=== PATIENT | male | born 2005 | race Caucasian/White ===

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

== ENCOUNTER 2024-09-26 01:00 | Emergency (ER) | payer OTHER, SELFPAY ==
--- NOTE | ~2024-09-26 | CT_ITS ---
EXAMINATION: CTA chest PE protocol DATE: 09/26/2024 05:28 INDICATION: Left rib pain, tachycardia and syncope TECHNIQUE: Computed tomography (CT) pulmonary angiogram of the chest was performed with 200 mL Omnipa que-350 intravenous contrast. Additional 3D reconstructions utilizing coronal maximum intensity proje ction (MIP) were performed. Automated exposure control and iterative reconstruction technique were em ployed. The dose-length product was 1475.14 mGy-cm. COMPARISON: None FINDINGS: There is poor contrast opacification of the pulmonary arteries of both initial and repeat images. The re is no pulmonary embolism in the main, left or right pulmonary arteries. No more peripheral pulmona ry embolism identified although sensitivity is progressively decreased in the lobar and segmental pul monary, essentially nondiagnostic beyond the segmental pulmonary arteries. No pneumonia, pulmonary ed vianey, pleural effusion or pneumothorax. Heart size is normal. No pericardial effusion. Thoracic aorta is normal in caliber with no dissection. Moderate bilateral gynecomastia. No pathologically enlarged thoracic lymphadenopathy. Visualized upper abdomen and bones are unremarkable. IMPRESSION: 1. Poor contrast opacification of the pulmonary arteries yielding a limited study. No central pulmona ry embolism. Sensitivity progressively decreases in the lobar and segmental pulmonary arteries, nondi agnostic in the more peripheral pulmonary arteries. Reviewed, dictated and finalized at location A. IMPRESSION: 1. Poor contrast opacification of the pulmonary arteries yielding a limited bruna dy. No central pulmonary embolism. Sensitivity progressively decreases in the l obar and segmental pulmonary arteries, nondiagnostic in the more peripheral pul monary arteries.
--- NOTE | ~2024-09-26 | XR_ITS ---
EXAMINATION: XR chest 1V DATE: 09/26/2024 02:11 INDICATION: Left rib pain TECHNIQUE: frontal view of the chest was obtained. COMPARISON: Chest radiograph dated 09/03/2019 FINDINGS: The lungs are clear with no focal airspace opacities, pulmonary edema, pleural effusion or pneumothor ax. The cardiomediastinal silhouette is normal. Visualized bones and soft tissues are unremarkable. IMPRESSION: 1. No acute cardiopulmonary disease. Reviewed, dictated and finalized at location A.
[2024-09-26 01:01] VITALS: BP 155/81; PULSE 118; RESP 18; TEMP 36.6; O2SAT 100
--- OUTSIDE RECORDS SUMMARY | 2024-09-26 01:02 | XMS_ITS | Clinical Summary ---
Author Organization [facility] Address [address] [place] [address] Care Team Providers Care Office Equipment Technician Name Role Phone Unavailable Primary Care Provider Unavailabl e Source Comments [facility],non-owned Affiliates and Associated Physician Practices is amultiple site organization consisting of ambulatory clinics and hospital sitesin [place], [place], [place] and [place]. This disclosure is being madepursuant to the Care Everywhere program and may not contain all information available regarding this patient. Last updated 17.[facility] Allergies No known active allergies Medications * Be aware that medications may not be up to date on this document. Alwaysverify current medications with the patient. azithromycin (ZITHROMAX) 250 MG tablet Take 250 mg by mouth once daily Active Active Problems Problem Noted Date Diagnosed Date COVID-19 09/03/2019 Assessment & Plan (09/03/2019 5:53 PM CDT): Assessment: 14 y/o male with productive cough x 1 week. Started on zpack on 08/30 by PCP and COVID (+) yesterday on outpatient labs. No known exposure. Outpatient CXR consistent with viral pneumonia. Patient hemodynamically stable and reports symptoms improving compared to yesterday. Plan: - Continue azithromycin for antiinflammatory effects - Airborne, Droplet and contact precautions - cardiorespiratory monitoring - Recommend 14 day self-quarantine of family or other contacts exposed to Vasquez as recommended by CDC guidelines Pleuritic chest pain 09/03/2019 Assessment & Plan (09/03/2019 6:19 PM CDT): Assessment: 14 y/o male with pmhx of global developmental delay and pectus excavatum, seen by PCP on 08/30 for productive cough x 1 week. Covid swab obtained and started on zpak. COVID (+) yesterday and outpatient CXR suggestive of viral pneumonia per PCP. Associate symptoms include pleuritic chest pain x 2 days, nasal congestion and fatigue. Patient in no distress and hemodynamically stable with adequate oxygenation on RA. Chest pain likely MSK as pain is reproducible with palpation to anterior chest wall, however, COVID systemic inflammatory response has been associated with damage to cardiac myocytes and will work up further with EKG and troponin. Given patient's + family hx of clotting disorder and increased risk of thrombosis associated with COVID, will order ddimer and consider CTA if elevated, to rule out PE. Patient requires admission for chest pain workup. Anticipate DC tomorrow if work-up unremarkable. Plan: - Direct admission to orange team, Dr. Peterson - EKG - serial troponins - ddimer - if ddimer elevated, consider CTA - BMP - complete Zpak course prescribed by PCP on 08/30 - continuous cardiorespiratory monitoring - Vitals q4h Assessment & Plan (09/03/2019 6:07 PM CDT): Assessment: 14 y/o male with pmhx of global developmental delay and pectus excavatum, seen by PCP on 08/30 for productive cough x 1 week. Covid swab obtained and started on zpak. COVID (+) yesterday and outpatient CXR suggestive of viral pneumonia per PCP. Associate symptoms include pleuritic chest pain x 2 days, nasal congestion and fatigue. Patient in no distress and hemodynamically stable with adequate oxygenation on RA. Chest pain likely MSK as pain is reproducible with palpation to anterior chest wall, however, COVID systemic inflammatory response has been associated with damage to cardiac myocytes and will work up further with EKG and troponin. Given patient's + family hx of clotting disorder and increased risk of thrombosis associated with COVID, will order ddimer and consider CTA if elevated, to rule out PE. Patient requires admission for chest pain workup. Anticipate DC tomorrow if work-up unremarkable. Plan: - Direct admission to orange team, Dr. Peterson - EKG - serial troponins - ddimer - if ddimer elevated, consider CTA - BMP - complete Zpak course prescribed by PCP on 08/30 - continuous cardiorespiratory monitoring - Vitals q4h Pneumonia due to COVID-19 virus 09/03/2019 Assessment & Plan (09/03/2019 5:58 PM CDT): Assessment: 14 y/o male with outpatient labs COVID positive and CXR concerning for viral pneumonia. Azythromycin started on 08/30 by PCP. No wheezes, crackles, or rales on exam and adequate oxygenation on room air. Hemodynamically stable. Will continue zpak to complete course for antiinflammatory effects. Plan: - complete Zpak course prescribed by PCP on 08/30 - continuous cardiorespiratory monitoring - Vitals q4h Resolved Problems Problem Noted Date Diagnosed Date Resolved Date Viral pneumonia 09/03/2019 09/03/2019 Social History Tobacco Use Types Packs/Day Years Used Date Smoking Tobacco: Never Smokeless Tobacco: Never Alcohol Use Standard Drinks/Week Comments Never 0 (1 standard drink = 0.6 oz pur e alcohol) AUDIT-C Answer Date Recorded Q1: How often do you have a drink containing alc ohol? Never 09/03/2019 Average Number of Drinks Not on file 020 Frequency of Binge Drinking Not on file 08/24 Sex and Gender Information Value Date Recorded Sex Assigned at Not on file Legal Sex Male 11:46 AM CDT Gender Identity Not on file Sexual Orientation Not on file Last Filed Vital Signs Vital Sign Reading Time Taken Comments Blood Pressure 132/88 09/04/2019 7:45 AM CDT Pulse 68 09/04/2019 7:40 AM CDT Temperature 36.3 C (97.4 F) 09/04/2019 7:40 AM CDT Respiratory Rate 18 09/04/2019 7:40 AM CDT Oxygen Saturation 98% 09/04/2019 7:40 AM CDT Inhaled Oxygen Concentration - - Weight 81.1 kg (178 lb 12.7 oz) 09/03/2019 2:52 PM CDT Height 188 cm (6' 2) 09/03/2019 2:52 PM CDT Body Mass Index 22.96 09/03/2019 2:52 PM CDT Plan of Treatment Health Maintenance Due Date Last Done Comments HIV SCREENING 2018 HPV VACCINE (1 - Male 3-dose series) 2018 MENINGOCOCCAL (Group B) VACC INE SHARED DECISION-MAKING (1 of 2 - Standard) 2019 HEPATITIS C SCREENING 04/07/2021 DTAP/TDAP/TD VACCINES (1 - Tdap) 2022 HEPATITIS B VACCINE (1 of 3 - 19+ 3-dose series) 2022 COVID-19 VACCINE (1 - 2023-2 5 season) 2023 DEPRESSION SCREENING 02/25/2024 INFLUENZA VACCINE (#1) 2024 ZOSTER VACCINE (1 of 2) 2053 HIB VACCINE Aged Out No longer eligi ble based on patient's age to complete this topic MENINGOCOCCAL GROUPS A/C/Y/W VACCINE Aged Out No longer eligible b ased on patient's age to complete this topic PNEUMOCOCCAL VACCINE Aged Out No long er eligible based on patient's age to complete this topic Insurance MEDICAID [employer] [facility] [employer] Advance Directives * Full Code (Latest Code Status on File) Date Activated Date Inactivated Comments 09/03/2019 2:35 PM 09/04/2019 12:58 PM
--- NOTE | 2024-09-26 02:02 | ECG_ITS ---
Test Date: 2024-09-26 03:02:28 Measurements Intervals [place] Rate: 95 P: 45 WI: 164 QRS: 23 QRSD: 107 T: -14 QT: 348 QTc: 439 Interpretive Statements SINUS RHYTHM POSSIBLE LEFT ATRIAL ENLARGEMENT BORDERLINE R WAVE PROGRESSION, ANTERIOR LEADS CONSIDER INFERIOR INFARCT, AGE INDETERMINATE BASELINE ARTIFACT- I, II, AVR, AVL, AVF ABNORMAL ECG No previous ECG available for comparison Electronically Signed On 09-26-2024 08:20:11 CDT by Maxim Bean D.O.
--- OUTSIDE RECORDS SUMMARY | 2024-09-26 03:00 | XMS_ITS | Clinical Summary ---
Author Organization [facility] Address [address] [place] [address] Care Team Providers Care Rod Welder Name Role Phone Unavailable Primary Care Provider Unavailabl e Source Comments [facility],non-owned Affiliates and Associated Physician Practices is amultiple site organization consisting of ambulatory clinics and hospital sitesin [place], [place], [place] and [place]. This disclosure is being madepursuant to the Care Everywhere program and may not contain all information available regarding this patient. Last updated 17.[facility] Allergies No known active allergies Medications * [...] topic Insurance MEDICAID [employer] [facility] [facility] Advance Directives * Full Code (Latest Code Status on File) Date Activated Date Inactivated Comments 09/03/2019 2:35 PM 09/04/2019 12:58 PM
[2024-09-26 03:16] VITALS: BP 167/87; PULSE 98; RESP 15; O2SAT 100
[2024-09-26 04:02] LABS: Influenza A QL RT-PCR Negative (Negative); Influenza B QL RT-PCR Negative (Negative); RSV RNA, RT-PCR Negative (Negative); SARS-CoV-2 RNA PCR Negative (Negative)
[2024-09-26] MEDS: LACTATED RINGERS 1,000 ML 999 ML IV CONT (04:17)
[2024-09-26] MEDS: ONDANSETRON INJ 4 MG/2 ML VIAL IV PUSH (04:18)
[2024-09-26] MEDS: FAMOTIDINE 20 MG/2 ML VIAL IV PUSH (04:18)
[2024-09-26 04:20] LABS: Hematocrit 44.7 % (42.0-52.0); Hemoglobin 15.3 g/dL (14.0-18.0); Immature Granulocyte Percent A 0.8 % (0-0.5); Lymphocytes Absolute Auto 1.32 K/mm3 (0.9-3.2); Mean Corpuscular HGB Conc 34.2 g/dl (32-36); Mean Corpuscular Hemoglobin 29.3 pg (26-34); Mean Corpuscular Volume 85.5 fl (80-100); Nucleated Red Blood Cells Absolute Auto 0.000 K/mm3 (0.0-0.012); Nucleated Red Blood Cells Perc 0.0 % (0.0-0.2); Platelet Count Result 333 k/mm3 (150-375); Red Blood Count 5.23 M/mm3 (4.6-6.20); White Blood Count 11.8 K/mm3 (4.5-10.0)
[2024-09-26 04:37] VITALS: BP 164/89; PULSE 91; RESP 20; O2SAT 100
[2024-09-26 04:52] LABS: Alanine Aminotransferase 95 U/L (6-50); Albumin Level 4.0 g/dL (3.5-5.1); Alkaline Phosphatase 161 U/L (38-126); Anion Gap 12 mmol/L (4-12); Aspartate Amino Transferase 44 U/L (17-59); Bilirubin,Total 0.8 mg/dL (0.2-1.3); Blood Urea Nitrogen 16 mg/dL (9-20); Calcium 8.8 mg/dL (8.4-10.2); Carbon Dioxide 26 mmol/L (22-30); Chloride 91 mmol/L (98-107); Estimated CRCL calculation 169 ml/min; Estimated Glomerular Filt Rate > 60; Glucose 110 mg/dL (65-110); Potassium 3.2 mmol/L (3.4-5.0); Sodium 129 mmol/L (137-145); Total Protein 7.8 g/dL (6.3-8.2)
[2024-09-26 05:02] LABS: Troponin I < 0.012 ng/mL (0.000-0.034)
--- NOTE | 2024-09-26 05:44 | ED.NAVMDI ---
HPI - Nausea/Vomiting/Diarrhea General Chief complaint: Nausea/Vomiting/Diarrhea <Lazara Herman MD - Last Filed: 10/12/24 10:37> Stated complaint: n/v/d pain in weird spots syncope episodes <Lazara Herman MD - Last Filed: 10/12/24 10:37> Time Seen by Provider: 09/26/24 02:47 <Lazara Herman MD - Last Filed: 10/12/24 10:37> History of Present Illness HPI Narrative: Patient reports that he has been having nausea vomiting, he also reports some left-sided chest pain and some difficulty breathing, he thinks that he has been passing out. Has never had symptoms like this before <Lazara Herman MD - Last Filed: 10/12/24 10:37> Related Data Allergies/Adverse reactions: Allergies Allergy/AdvReac Type Severity Reaction Status Date / Time No Known Allergies Allergy Unverified 04/05/15 12:40 <Lazara Herman MD - Last Filed: 10/12/24 10:37> Review of Systems Review of Systems: All systems reviewed & are unremarkable except as noted in HPI and below <Lazara Herman MD - Last Filed: 10/12/24 10:37> Exam Narrative: EXAMINATION OF ORGAN SYSTEMS/BODY AREAS: Constitutional: Vital signs per nursing GENERAL: Appears slightly uncomfortable HEAD: Normal with no signs of head trauma. EYES: EOMI, conjunctiva normal ENT: Hearing grossly intact LUNGS: Nonlabored breathing. Clear to auscultation bilaterally HEART: Tachycardic ABD: [Soft], [nontender to palpation] EXT: Normal range of motion SKIN: [No rashes or lesions.] NEURO: [Alert and oriented x 3. No gross focal sensory or strength deficits.] PSYCH: Normal affect <Lazara Herman MD - Last Filed: 10/12/24 10:37> Course Course Emergency Course: Patient care signed out to me by the overnight physician with a CTA pending with dissipated disposition being discharged home. Patient is currently afebrile but does have a leukocytosis of 11.8 hemoglobin of 15.3. Patient's D-dimer is elevated at 3.8. Patient has had was 129, potassium 3.2 patient's influenza RSV and COVID were negative. CTA was per contrast but was negative for the visualized arteries nondiagnostic for peripheral arteries. Patient is not tachycardic and not hypoxic and has a pressure 150/88. Patient does describe having a our illness. Patient family updated the results of the workup and patient will have close follow-up with his primary care physician. <Armand Shane MD - Last Filed: 09/26/24 17:14> Vital Signs Vital signs: Vital Signs Temperature 97.9 F 09/26/24 01:01 Pulse Rate 118 H 09/26/24 01:01 Respiratory Rate 18 09/26/24 01:01 Blood Pressure 155/81 H 09/26/24 01:01 Pulse Oximetry 100 09/26/24 01:01 Oxygen Delivery Room Air 09/26/24 01:01 Temperature 97.9 F 09/26/24 01:01 Pulse Rate 103 H 09/26/24 06:20 Respiratory Rate 22 H 09/26/24 06:20 Blood Pressure 121/80 09/26/24 06:20 Pulse Oximetry 99 09/26/24 06:20 Oxygen Delivery Room Air 09/26/24 01:01 <Lazara Herman MD - Last Filed: 10/12/24 10:37> Vital Signs Temperature 97.9 F 09/26/24 01:01 Pulse Rate 118 H 09/26/24 01:01 Respiratory Rate 18 09/26/24 01:01 Blood Pressure 155/81 H 09/26/24 01:01 Pulse Oximetry 100 09/26/24 01:01 Oxygen Delivery Room Air 09/26/24 01:01 Temperature 97.9 F 09/26/24 01:01 Pulse Rate 103 H 09/26/24 06:20 Respiratory Rate 22 H 09/26/24 06:20 Blood Pressure 121/80 09/26/24 06:20 Pulse Oximetry 99 09/26/24 06:20 Oxygen Delivery Room Air 09/26/24 01:01 <Armand Shane MD - Last Filed: 09/26/24 17:14> MDM - Nausea/Vomiting/Diarrhea MDM Narrative Medical decision making narrative: 19-year-old male presenting with vague symptoms including nausea, vomiting, possible syncope, left-sided chest pain and shortness of breath. Given the list of symptoms I have wide differential, but will rule out PE, viral syndrome, pneumonia D-dimer is elevated so CT PE obtained. Potassium 3.2 which is repleted. Troponin is negative. Swabs are negative CT PE still pending at this time signed out to oncoming ER physician <Lazara Herman MD - Last Filed: 10/12/24 10:37> Differential Diagnosis Differential diagnosis: Likely other (Pneumonia, pneumothorax, pulmonary embolism) <Armand Shane MD - Last Filed: 09/26/24 17:14> Lab Data Attestation: I reviewed the patient's lab results. <Armand Shane MD - Last Filed: 09/26/24 17:14> Result diagrams: 09/26/24 04:14 09/26/24 04:14 <Lazara Herman MD - Last Filed: 10/12/24 10:37> Labs: Lab Results 09/26/24 09/26/24 09/26/24 Range/Units 03:10 04:14 04:14 WBC 11.8 H (4.5-10.0) K/mm3 RBC 5.23 (4.6-6.20) M/mm3 Hgb 15.3 (14.0-18.0) g/dL Hct 44.7 (42.0-52.0) % MCV 85.5 (80-100) fl MCH 29.3 (26-34) pg MCHC 34.2 (32-36) g/dl RDW 12.0 (11.5-14.5) % Plt Count 333 (150-375) k/mm3 MPV 10.9 H (7.4-10.4) fl Immature Gran % (Auto) 0.8 H (0-0.5) % Neut % (Auto) 77.5 H (45.5-73.1) % Lymph % (Auto) 11.1 L (18.3-44.2) % Carroll % (Auto) 10.1 H (2.6-8.5) % Eos % (Auto) 0.4 (0-4.4) % Baso % (Auto) 0.1 L (0.2-1.2) % Lymph # (Auto) 1.32 (0.9-3.2) K/mm3 Carroll # (Auto) 1.2 H (0.1-0.6) K/mm3 Eos # (Auto) 0.1 (0-0.3) K/mm3 Baso # (Auto) 0.0 (0.0-0.1) K/mm3 Abs Immat Gran (auto) 0.10 H (0.00-0.031) K/mm3 Absolute Neuts (auto) 9.2 H (1.3-6.7) K/mm3 Absolute Nucleated RBC 0.000 (0.0-0.012) K/mm3 Nucleated RBC % 0.0 (0.0-0.2) % D-Dimer 3.80 H (<0.48) ug/mL Sodium Cancelled 129 L Potassium Cancelled Chloride Carbon Dioxide Anion Gap BUN Creatinine Estim Creat Clear Calc Estimated GFR Glucose Calcium Total Bilirubin AST ALT Alkaline Phosphatase Troponin I (0.000-0.034) ng/mL Total Protein Albumin Influenza A (RT-PCR) Negative (Negative) Influenza B (RT-PCR) Negative (Negative) RSV (RT-PCR) Negative (Negative) SARS-CoV-2 RNA (RT-PCR) Negative (Negative) 09/26/24 09/26/24 09/26/24 Range/Units 04:14 04:14 04:14 WBC (4.5-10.0) K/mm3 RBC (4.6-6.20) M/mm3 Hgb (14.0-18.0) g/dL Hct (42.0-52.0) % MCV (80-100) fl MCH (26-34) pg MCHC (32-36) g/dl RDW (11.5-14.5) % Plt Count (150-375) k/mm3 MPV (7.4-10.4) fl Immature Gran % (Auto) (0-0.5) % Neut % (Auto) (45.5-73.1) % Lymph % (Auto) (18.3-44.2) % Carroll % (Auto) (2.6-8.5) % Eos % (Auto) (0-4.4) % Baso % (Auto) (0.2-1.2) % Lymph # (Auto) (0.9-3.2) K/mm3 [place] # (Auto) (0.1-0.6) K/mm3 Eos # (Auto) (0-0.3) K/mm3 Baso # (Auto) (0.0-0.1) K/mm3 Abs Immat Gran (auto) (0.00-0.031) K/mm3 Absolute Neuts (auto) (1.3-6.7) K/mm3 Absolute Nucleated RBC (0.0-0.012) K/mm3 Nucleated RBC % (0.0-0.2) % D-Dimer (<0.48) ug/mL Sodium Potassium 3.2 L Chloride Cancelled 91 L Carbon Dioxide Cancelled 26 Anion Gap Cancelled BUN Creatinine Estim Creat Clear Calc Estimated GFR Glucose Calcium Total Bilirubin AST ALT Alkaline Phosphatase Troponin I (0.000-0.034) ng/mL Total Protein Albumin Influenza A (RT-PCR) (Negative) Influenza B (RT-PCR) (Negative) RSV (RT-PCR) (Negative) SARS-CoV-2 RNA (RT-PCR) (Negative) 09/26/24 09/26/24 09/26/24 Range/Units 04:14 04:14 04:14 WBC (4.5-10.0) K/mm3 RBC (4.6-6.20) M/mm3 Hgb (14.0-18.0) g/dL Hct (42.0-52.0) % MCV (80-100) fl MCH (26-34) pg MCHC (32-36) g/dl RDW (11.5-14.5) % Plt Count (150-375) k/mm3 MPV (7.4-10.4) fl Immature Gran % (Auto) (0-0.5) % Neut % (Auto) (45.5-73.1) % Lymph % (Auto) (18.3-44.2) % Carroll % (Auto) (2.6-8.5) % Eos % (Auto) (0-4.4) % Baso % (Auto) (0.2-1.2) % Lymph # (Auto) (0.9-3.2) K/mm3 Carroll # (Auto) (0.1-0.6) K/mm3 Eos # (Auto) (0-0.3) K/mm3 Baso # (Auto) (0.0-0.1) K/mm3 Abs Immat Gran (auto) (0.00-0.031) K/mm3 Absolute Neuts (auto) (1.3-6.7) K/mm3 Absolute Nucleated RBC (0.0-0.012) K/mm3 Nucleated RBC % (0.0-0.2) % D-Dimer (<0.48) ug/mL Sodium Potassium Chloride Carbon Dioxide Anion Gap 12 BUN Cancelled 16 Creatinine Cancelled 0.88 Estim Creat Clear Calc Cancelled Estimated GFR Glucose Calcium Total Bilirubin AST ALT Alkaline Phosphatase Troponin I (0.000-0.034) ng/mL Total Protein Albumin Influenza A (RT-PCR) (Negative) Influenza B (RT-PCR) (Negative) RSV (RT-PCR) (Negative) SARS-CoV-2 RNA (RT-PCR) (Negative) 09/26/24 09/26/24 09/26/24 Range/Units 04:14 04:14 04:14 WBC (4.5-10.0) K/mm3 RBC (4.6-6.20) M/mm3 Hgb (14.0-18.0) g/dL Hct (42.0-52.0) % MCV (80-100) fl MCH (26-34) pg MCHC (32-36) g/dl RDW (11.5-14.5) % Plt Count (150-375) k/mm3 MPV (7.4-10.4) fl Immature Gran % (Auto) (0-0.5) % Neut % (Auto) (45.5-73.1) % Lymph % (Auto) (18.3-44.2) % Carroll % (Auto) (2.6-8.5) % Eos % (Auto) (0-4.4) % Baso % (Auto) (0.2-1.2) % Lymph # (Auto) (0.9-3.2) K/mm3 Carroll # (Auto) (0.1-0.6) K/mm3 Eos # (Auto) (0-0.3) K/mm3 Baso # (Auto) (0.0-0.1) K/mm3 Abs Immat Gran (auto) (0.00-0.031) K/mm3 Absolute Neuts (auto) (1.3-6.7) K/mm3 Absolute Nucleated RBC (0.0-0.012) K/mm3 Nucleated RBC % (0.0-0.2) % D-Dimer (<0.48) ug/mL Sodium Potassium Chloride Carbon Dioxide Anion Gap BUN Creatinine Estim Creat Clear Calc 169 Estimated GFR Cancelled > 60 Glucose Cancelled 110 Calcium Cancelled Total Bilirubin AST ALT Alkaline Phosphatase Troponin I (0.000-0.034) ng/mL Total Protein Albumin Influenza A (RT-PCR) (Negative) Influenza B (RT-PCR) (Negative) RSV (RT-PCR) (Negative) SARS-CoV-2 RNA (RT-PCR) (Negative) 09/26/24 09/26/24 09/26/24 Range/Units 04:14 04:14 04:14 WBC (4.5-10.0) K/mm3 RBC (4.6-6.20) M/mm3 Hgb (14.0-18.0) g/dL Hct (42.0-52.0) % MCV (80-100) fl MCH (26-34) pg MCHC (32-36) g/dl RDW (11.5-14.5) % Plt Count (150-375) k/mm3 MPV (7.4-10.4) fl Immature Gran % (Auto) (0-0.5) % Neut % (Auto) (45.5-73.1) % Lymph % (Auto) (18.3-44.2) % Carroll % (Auto) (2.6-8.5) % Eos % (Auto) (0-4.4) % Baso % (Auto) (0.2-1.2) % Lymph # (Auto) (0.9-3.2) K/mm3 [place] # (Auto) (0.1-0.6) K/mm3 Eos # (Auto) (0-0.3) K/mm3 Baso # (Auto) (0.0-0.1) K/mm3 Abs Immat Gran (auto) (0.00-0.031) K/mm3 Absolute Neuts (auto) (1.3-6.7) K/mm3 Absolute Nucleated RBC (0.0-0.012) K/mm3 Nucleated RBC % (0.0-0.2) % D-Dimer (<0.48) ug/mL Sodium Potassium Chloride Carbon Dioxide Anion Gap BUN Creatinine Estim Creat Clear Calc Estimated GFR Glucose Calcium 8.8 Total Bilirubin Cancelled 0.8 AST Cancelled 44 ALT Cancelled Alkaline Phosphatase Troponin I (0.000-0.034) ng/mL Total Protein Albumin Influenza A (RT-PCR) (Negative) Influenza B (RT-PCR) (Negative) RSV (RT-PCR) (Negative) SARS-CoV-2 RNA (RT-PCR) (Negative) 09/26/24 09/26/24 09/26/24 Range/Units 04:14 04:14 04:14 WBC (4.5-10.0) K/mm3 RBC (4.6-6.20) M/mm3 Hgb (14.0-18.0) g/dL Hct (42.0-52.0) % MCV (80-100) fl MCH (26-34) pg MCHC (32-36) g/dl RDW (11.5-14.5) % Plt Count (150-375) k/mm3 MPV (7.4-10.4) fl Immature Gran % (Auto) (0-0.5) % Neut % (Auto) (45.5-73.1) % Lymph % (Auto) (18.3-44.2) % Carroll % (Auto) (2.6-8.5) % Eos % (Auto) (0-4.4) % Baso % (Auto) (0.2-1.2) % Lymph # (Auto) (0.9-3.2) K/mm3 [place] # (Auto) (0.1-0.6) K/mm3 Eos # (Auto) (0-0.3) K/mm3 Baso # (Auto) (0.0-0.1) K/mm3 Abs Immat Gran (auto) (0.00-0.031) K/mm3 Absolute Neuts (auto) (1.3-6.7) K/mm3 Absolute Nucleated RBC (0.0-0.012) K/mm3 Nucleated RBC % (0.0-0.2) % D-Dimer (<0.48) ug/mL Sodium Potassium Chloride Carbon Dioxide Anion Gap BUN Creatinine Estim Creat Clear Calc Estimated GFR Glucose Calcium Total Bilirubin AST ALT 95 H Alkaline Phosphatase Cancelled 161 H Troponin I < 0.012 (0.000-0.034) ng/mL Total Protein Cancelled 7.8 Albumin Cancelled Influenza A (RT-PCR) (Negative) Influenza B (RT-PCR) (Negative) RSV (RT-PCR) (Negative) SARS-CoV-2 RNA (RT-PCR) (Negative) 09/26/24 Range/Units 04:14 WBC (4.5-10.0) K/mm3 RBC (4.6-6.20) M/mm3 Hgb (14.0-18.0) g/dL Hct (42.0-52.0) % MCV (80-100) fl MCH (26-34) pg MCHC (32-36) g/dl RDW (11.5-14.5) % Plt Count (150-375) k/mm3 MPV (7.4-10.4) fl Immature Gran % (Auto) (0-0.5) % Neut % (Auto) (45.5-73.1) % Lymph % (Auto) (18.3-44.2) % Carroll % (Auto) (2.6-8.5) % Eos % (Auto) (0-4.4) % Baso % (Auto) (0.2-1.2) % Lymph # (Auto) (0.9-3.2) K/mm3 [place] # (Auto) (0.1-0.6) K/mm3 Eos # (Auto) (0-0.3) K/mm3 Baso # (Auto) (0.0-0.1) K/mm3 Abs Immat Gran (auto) (0.00-0.031) K/mm3 Absolute Neuts (auto) (1.3-6.7) K/mm3 Absolute Nucleated RBC (0.0-0.012) K/mm3 Nucleated RBC % (0.0-0.2) % D-Dimer (<0.48) ug/mL Sodium Potassium Chloride Carbon Dioxide Anion Gap BUN Creatinine Estim Creat Clear Calc Estimated GFR Glucose Calcium Total Bilirubin AST ALT Alkaline Phosphatase Troponin I (0.000-0.034) ng/mL Total Protein Albumin 4.0 Influenza A (RT-PCR) (Negative) Influenza B (RT-PCR) (Negative) RSV (RT-PCR) (Negative) SARS-CoV-2 RNA (RT-PCR) (Negative) <Lazara Herman MD - Last Filed: 10/12/24 10:37> Lab Results 09/26/24 09/26/24 09/26/24 Range/Units 03:10 04:14 04:14 WBC 11.8 H (4.5-10.0) K/mm3 RBC 5.23 (4.6-6.20) M/mm3 Hgb 15.3 (14.0-18.0) g/dL Hct 44.7 (42.0-52.0) % MCV 85.5 (80-100) fl MCH 29.3 (26-34) pg MCHC 34.2 (32-36) g/dl RDW 12.0 (11.5-14.5) % Plt Count 333 (150-375) k/mm3 MPV 10.9 H (7.4-10.4) fl Immature Gran % (Auto) 0.8 H (0-0.5) % Neut % (Auto) 77.5 H (45.5-73.1) % Lymph % (Auto) 11.1 L (18.3-44.2) % Carroll % (Auto) 10.1 H (2.6-8.5) % Eos % (Auto) 0.4 (0-4.4) % Baso % (Auto) 0.1 L (0.2-1.2) % Lymph # (Auto) 1.32 (0.9-3.2) K/mm3 [place] # (Auto) 1.2 H (0.1-0.6) K/mm3 Eos # (Auto) 0.1 (0-0.3) K/mm3 Baso # (Auto) 0.0 (0.0-0.1) K/mm3 Abs Immat Gran (auto) 0.10 H (0.00-0.031) K/mm3 Absolute Neuts (auto) 9.2 H (1.3-6.7) K/mm3 Absolute Nucleated RBC 0.000 (0.0-0.012) K/mm3 Nucleated RBC % 0.0 (0.0-0.2) % D-Dimer 3.80 H (<0.48) ug/mL Sodium Cancelled 129 L Potassium Cancelled Chloride Carbon Dioxide Anion Gap BUN Creatinine Estim Creat Clear Calc Estimated GFR Glucose Calcium Total Bilirubin AST ALT Alkaline Phosphatase Troponin I (0.000-0.034) ng/mL Total Protein Albumin Influenza A (RT-PCR) Negative (Negative) Influenza B (RT-PCR) Negative (Negative) RSV (RT-PCR) Negative (Negative) SARS-CoV-2 RNA (RT-PCR) Negative (Negative) 09/26/24 09/26/24 09/26/24 Range/Units 04:14 04:14 04:14 WBC (4.5-10.0) K/mm3 RBC (4.6-6.20) M/mm3 Hgb (14.0-18.0) g/dL Hct (42.0-52.0) % MCV (80-100) fl MCH (26-34) pg MCHC (32-36) g/dl RDW (11.5-14.5) % Plt Count (150-375) k/mm3 MPV (7.4-10.4) fl Immature Gran % (Auto) (0-0.5) % Neut % (Auto) (45.5-73.1) % Lymph % (Auto) (18.3-44.2) % [place] % (Auto) (2.6-8.5) % Eos % (Auto) (0-4.4) % Baso % (Auto) (0.2-1.2) % Lymph # (Auto) (0.9-3.2) K/mm3 [place] # (Auto) (0.1-0.6) K/mm3 Eos # (Auto) (0-0.3) K/mm3 Baso # (Auto) (0.0-0.1) K/mm3 Abs Immat Gran (auto) (0.00-0.031) K/mm3 Absolute Neuts (auto) (1.3-6.7) K/mm3 Absolute Nucleated RBC (0.0-0.012) K/mm3 Nucleated RBC % (0.0-0.2) % D-Dimer (<0.48) ug/mL Sodium Potassium 3.2 L Chloride Cancelled 91 L Carbon Dioxide Cancelled 26 Anion Gap Cancelled BUN Creatinine Estim Creat Clear Calc Estimated GFR Glucose Calcium Total Bilirubin AST ALT Alkaline Phosphatase Troponin I (0.000-0.034) ng/mL Total Protein Albumin Influenza A (RT-PCR) (Negative) Influenza B (RT-PCR) (Negative) RSV (RT-PCR) (Negative) SARS-CoV-2 RNA (RT-PCR) (Negative) 09/26/24 09/26/24 09/26/24 Range/Units 04:14 04:14 04:14 WBC (4.5-10.0) K/mm3 RBC (4.6-6.20) M/mm3 Hgb (14.0-18.0) g/dL Hct (42.0-52.0) % MCV (80-100) fl MCH (26-34) pg MCHC (32-36) g/dl RDW (11.5-14.5) % Plt Count (150-375) k/mm3 MPV (7.4-10.4) fl Immature Gran % (Auto) (0-0.5) % Neut % (Auto) (45.5-73.1) % Lymph % (Auto) (18.3-44.2) % [place] % (Auto) (2.6-8.5) % Eos % (Auto) (0-4.4) % Baso % (Auto) (0.2-1.2) % Lymph # (Auto) (0.9-3.2) K/mm3 [place] # (Auto) (0.1-0.6) K/mm3 Eos # (Auto) (0-0.3) K/mm3 Baso # (Auto) (0.0-0.1) K/mm3 Abs Immat Gran (auto) (0.00-0.031) K/mm3 Absolute Neuts (auto) (1.3-6.7) K/mm3 Absolute Nucleated RBC (0.0-0.012) K/mm3 Nucleated RBC % (0.0-0.2) % D-Dimer (<0.48) ug/mL Sodium Potassium Chloride Carbon Dioxide Anion Gap 12 BUN Cancelled 16 Creatinine Cancelled 0.88 Estim Creat Clear Calc Cancelled Estimated GFR Glucose Calcium Total Bilirubin AST ALT Alkaline Phosphatase Troponin I (0.000-0.034) ng/mL Total Protein Albumin Influenza A (RT-PCR) (Negative) Influenza B (RT-PCR) (Negative) RSV (RT-PCR) (Negative) SARS-CoV-2 RNA (RT-PCR) (Negative) 09/26/24 09/26/24 09/26/24 Range/Units 04:14 04:14 04:14 WBC (4.5-10.0) K/mm3 RBC (4.6-6.20) M/mm3 Hgb (14.0-18.0) g/dL Hct (42.0-52.0) % MCV (80-100) fl MCH (26-34) pg MCHC (32-36) g/dl RDW (11.5-14.5) % Plt Count (150-375) k/mm3 MPV (7.4-10.4) fl Immature Gran % (Auto) (0-0.5) % Neut % (Auto) (45.5-73.1) % Lymph % (Auto) (18.3-44.2) % [place] % (Auto) (2.6-8.5) % Eos % (Auto) (0-4.4) % Baso % (Auto) (0.2-1.2) % Lymph # (Auto) (0.9-3.2) K/mm3 [place] # (Auto) (0.1-0.6) K/mm3 Eos # (Auto) (0-0.3) K/mm3 Baso # (Auto) (0.0-0.1) K/mm3 Abs Immat Gran (auto) (0.00-0.031) K/mm3 Absolute Neuts (auto) (1.3-6.7) K/mm3 Absolute Nucleated RBC (0.0-0.012) K/mm3 Nucleated RBC % (0.0-0.2) % D-Dimer (<0.48) ug/mL Sodium Potassium Chloride Carbon Dioxide Anion Gap BUN Creatinine Estim Creat Clear Calc 169 Estimated GFR Cancelled > 60 Glucose Cancelled 110 Calcium Cancelled Total Bilirubin AST ALT Alkaline Phosphatase Troponin I (0.000-0.034) ng/mL Total Protein Albumin Influenza A (RT-PCR) (Negative) Influenza B (RT-PCR) (Negative) RSV (RT-PCR) (Negative) SARS-CoV-2 RNA (RT-PCR) (Negative) 09/26/24 09/26/24 09/26/24 Range/Units 04:14 04:14 04:14 WBC (4.5-10.0) K/mm3 RBC (4.6-6.20) M/mm3 Hgb (14.0-18.0) g/dL Hct (42.0-52.0) % MCV (80-100) fl MCH (26-34) pg MCHC (32-36) g/dl RDW (11.5-14.5) % Plt Count (150-375) k/mm3 MPV (7.4-10.4) fl Immature Gran % (Auto) (0-0.5) % Neut % (Auto) (45.5-73.1) % Lymph % (Auto) (18.3-44.2) % [place] % (Auto) (2.6-8.5) % Eos % (Auto) (0-4.4) % Baso % (Auto) (0.2-1.2) % Lymph # (Auto) (0.9-3.2) K/mm3 [place] # (Auto) (0.1-0.6) K/mm3 Eos # (Auto) (0-0.3) K/mm3 Baso # (Auto) (0.0-0.1) K/mm3 Abs Immat Gran (auto) (0.00-0.031) K/mm3 Absolute Neuts (auto) (1.3-6.7) K/mm3 Absolute Nucleated RBC (0.0-0.012) K/mm3 Nucleated RBC % (0.0-0.2) % D-Dimer (<0.48) ug/mL Sodium Potassium Chloride Carbon Dioxide Anion Gap BUN Creatinine Estim Creat Clear Calc Estimated GFR Glucose Calcium 8.8 Total Bilirubin Cancelled 0.8 AST Cancelled 44 ALT Cancelled Alkaline Phosphatase Troponin I (0.000-0.034) ng/mL Total Protein Albumin Influenza A (RT-PCR) (Negative) Influenza B (RT-PCR) (Negative) RSV (RT-PCR) (Negative) SARS-CoV-2 RNA (RT-PCR) (Negative) 09/26/24 09/26/24 09/26/24 Range/Units 04:14 04:14 04:14 WBC (4.5-10.0) K/mm3 RBC (4.6-6.20) M/mm3 Hgb (14.0-18.0) g/dL Hct (42.0-52.0) % MCV (80-100) fl MCH (26-34) pg MCHC (32-36) g/dl RDW (11.5-14.5) % Plt Count (150-375) k/mm3 MPV (7.4-10.4) fl Immature Gran % (Auto) (0-0.5) % Neut % (Auto) (45.5-73.1) % Lymph % (Auto) (18.3-44.2) % [place] % (Auto) (2.6-8.5) % Eos % (Auto) (0-4.4) % Baso % (Auto) (0.2-1.2) % Lymph # (Auto) (0.9-3.2) K/mm3 [place] # (Auto) (0.1-0.6) K/mm3 Eos # (Auto) (0-0.3) K/mm3 Baso # (Auto) (0.0-0.1) K/mm3 Abs Immat Gran (auto) (0.00-0.031) K/mm3 Absolute Neuts (auto) (1.3-6.7) K/mm3 Absolute Nucleated RBC (0.0-0.012) K/mm3 Nucleated RBC % (0.0-0.2) % D-Dimer (<0.48) ug/mL Sodium Potassium Chloride Carbon Dioxide Anion Gap BUN Creatinine Estim Creat Clear Calc Estimated GFR Glucose Calcium Total Bilirubin AST ALT 95 H Alkaline Phosphatase Cancelled 161 H Troponin I < 0.012 (0.000-0.034) ng/mL Total Protein Cancelled 7.8 Albumin Cancelled Influenza A (RT-PCR) (Negative) Influenza B (RT-PCR) (Negative) RSV (RT-PCR) (Negative) SARS-CoV-2 RNA (RT-PCR) (Negative) 09/26/24 Range/Units 04:14 WBC (4.5-10.0) K/mm3 RBC (4.6-6.20) M/mm3 Hgb (14.0-18.0) g/dL Hct (42.0-52.0) % MCV (80-100) fl MCH (26-34) pg MCHC (32-36) g/dl RDW (11.5-14.5) % Plt Count (150-375) k/mm3 MPV (7.4-10.4) fl Immature Gran % (Auto) (0-0.5) % Neut % (Auto) (45.5-73.1) % Lymph % (Auto) (18.3-44.2) % [place] % (Auto) (2.6-8.5) % Eos % (Auto) (0-4.4) % Baso % (Auto) (0.2-1.2) % Lymph # (Auto) (0.9-3.2) K/mm3 [place] # (Auto) (0.1-0.6) K/mm3 Eos # (Auto) (0-0.3) K/mm3 Baso # (Auto) (0.0-0.1) K/mm3 Abs Immat Gran (auto) (0.00-0.031) K/mm3 Absolute Neuts (auto) (1.3-6.7) K/mm3 Absolute Nucleated RBC (0.0-0.012) K/mm3 Nucleated RBC % (0.0-0.2) % D-Dimer (<0.48) ug/mL Sodium Potassium Chloride Carbon Dioxide Anion Gap BUN Creatinine Estim Creat Clear Calc Estimated GFR Glucose Calcium Total Bilirubin AST ALT Alkaline Phosphatase Troponin I (0.000-0.034) ng/mL Total Protein Albumin 4.0 Influenza A (RT-PCR) (Negative) Influenza B (RT-PCR) (Negative) RSV (RT-PCR) (Negative) SARS-CoV-2 RNA (RT-PCR) (Negative) <Armand Shane MD - Last Filed: 09/26/24 17:14> Imaging Data Radiologist's impression: Impressions Chest CTA 09/26/24 07:21 IMPRESSION: 1. Poor contrast opacification of the pulmonary arteries yielding a limited study. No central pulmonary embolism. Sensitivity progressively decreases in the lobar and segmental pulmonary arteries, nondiagnostic in the more peripheral pulmonary arteries. <Armand Shane MD - Last Filed: 09/26/24 17:14> ECG Data EKG #1: EKG Interpretation: normal rate, sinus rhythm, no ectopy, non-specific ST changes, normal QRS, normal QT and NL axis <Armand Shane MD - Last Filed: 09/26/24 17:14> Discharge Plan Discharge Clinical Impression: Chest pain, Nausea and vomiting, Acute viral syndrome <Lazara Herman MD - Last Filed: 10/12/24 10:37> Patient Disposition: Home <Lazara Herman MD - Last Filed: 10/12/24 10:37> Condition: Stable <Lazara Herman MD - Last Filed: 10/12/24 10:37> Instructions: Antibiotic Form, Clear Liquid Diet (ED), Acute Nausea and Vomiting (ED), Viral Syndrome (ED) <Lazara Herman MD - Last Filed: 10/12/24 10:37> Additional Instructions: Zofran as needed for nausea control. Clear liquid diet for the next 1-3 days. Tylenol and ibuprofen as needed for fever and for body aches. Have close follow-up with your primary care physician. If you have any worsening symptoms then please call or return to the emergency department. <Lazara Herman MD - Last Filed: 10/12/24 10:37> Patient Language: [place] <Lazara Herman MD - Last Filed: 10/12/24 10:37> Follow-up/Referrals: PHYSICIAN,PATTERN DRAFTER [Primary Care Provider, Internal Medicine] <Lazara Herman MD - Last Filed: 10/12/24 10:37> Stand Alone Forms: Work/School Release IP <Lazara Herman MD - Last Filed: 10/12/24 10:37> Quality HEART score for chest pain patients History: slightly suspicious <Armand Shane MD - Last Filed: 09/26/24 17:14> ECG: normal <Armand Shane MD - Last Filed: 09/26/24 17:14> Age: < or = to 45 years <Armand Shane MD - Last Filed: 09/26/24 17:14> Risk factors: 1 or 2 risk factors <Armand Shane MD - Last Filed: 09/26/24 17:14> Troponin: < or = to 1x normal limit <Armand Shane MD - Last Filed: 09/26/24 17:14> Heart score: 1 <Lazara Herman MD - Last Filed: 10/12/24 10:37> 1 <Armand Shane MD - Last Filed: 09/26/24 17:14>
[2024-09-26] MEDS: POTASSIUM CHLORIDE 20 MEQ ER TABLET 40 MEQ PO (05:48)
[2024-09-26 06:20] VITALS: BP 121/80; PULSE 103; RESP 22; O2SAT 99
== END 2024-09-26 08:03 | disposition home or self-care (01) ==
PROVIDERS: Emergency Provider Emergency Medicine
DX: B34.9 Viral infection, unspecified (principal); R11.2 Nausea with vomiting, unspecified; R07.9 Chest pain, unspecified; Z20.822 Contact with and (suspected) exposure to COVID-19; R94.31 Abnormal electrocardiogram [ECG] [EKG]
CPT/HCPCS: 36415; 71045; 71275; 80053; 84484; 85025; 85380; 87637; 93005; 96361; 96374; 96375; 99284; A9270; J2405; J7120; Q9967